=== PATIENT | female | born 1950 | race African-American/Black ===

== ENCOUNTER 2017-05-06 12:58 | Emergency (ER) | payer MEDICARE, MEDICAID ==
[~2017-05-06] VITALS: Ht 172.7 cm; Wt 91.0 kg
[~2017-05-06 12:58] MED LIST: ALBU18HF2; ALBU2.5V13; GUAI-1081; LORA10TA7; LOSA25TA12; MONT10TA24
[2017-05-06] MEDS ORDERED: KETOROLAC 30MG/ML VIAL IV STA (14:38)
[2017-05-06] MEDS ORDERED: MAGNESIUM 2 G PREMIX 50 ML IV ONE (14:45)
[2017-05-06] MEDS ORDERED: METOCLOPRAMIDE HCL 10MG/2ML VIAL IV ONE (14:45)
[2017-05-06 15:10] LABS: BASOPHILS % 0.8 % (0.0-2.0); EOSINOPHILS % 1.5 % (0.0-5.0); HEMATOCRIT. 37.6 % (36.0-48.0); HEMOGLOBIN. 12.5 g/dL (12.0-16.0); LYMPHOCYTES % 31.3 % (20.0-50.0); MEAN CORPUSCULAR HEMOGLOBIN 29.4 pg (28.0-32.0); MEAN CORPUSCULAR VOLUME 88.7 fL (81.0-99.0); MEAN PLATELET VOLUME 11.5 fl (7.4-10.4); MONOCYTES % 6.2 % (2.0-8.0); NEUTROPHILS % 60.2 % (40.0-76.0); PLATELET 166 x1000/uL (130-400); RED BLOOD CELL COUNT 4.24 mill/uL (4.2-5.4); RED CELL DISTRIBUTION WIDTH 12.8 % (11.6-14.6)
[2017-05-06 15:15] LABS: CHLORIDE 107 mEq/L (98-107)
[2017-05-06 15:19] LABS: CARBON DIOXIDE 28 mEq/L (21-32)
[2017-05-06 16:43] VITALS: BP 130/76
== END 2017-05-06 17:11 | disposition home or self-care (01) ==
LOC: ER 15:50
DX: R51 Headache (principal); R42 Dizziness and giddiness; I10 Essential (primary) hypertension; J45.909 Unspecified asthma, uncomplicated; Z79.899 Other long term (current) drug therapy; Z87.891 Personal history of nicotine dependence
CPT/HCPCS: 36415; 80053; 85025; 96361; 96374; 96375; 99284; J1885; J2765; J3475

== ENCOUNTER 2017-05-30 22:18 | Emergency (ER) | payer MEDICARE, MEDICAID ==
[~2017-05-30] VITALS: Ht 175.3 cm; Wt 98.0 kg
[2017-05-30 22:56] VITALS: BP 129/71
== END 2017-05-31 07:38 | disposition left against medical advice (07) ==
LOC: ER 22:18
DX: K08.89 Other specified disorders of teeth and supporting structures (principal); I10 Essential (primary) hypertension; Z90.710 Acquired absence of both cervix and uterus; Z53.21 Procedure and treatment not carried out due to patient leaving prior to being seen by health care provider

== ENCOUNTER 2017-05-31 10:30 | Emergency (ER) | payer MEDICARE, MEDICAID ==
[~2017-05-31] VITALS: Ht 175.3 cm; Wt 99.0 kg
[2017-05-31] MEDS ORDERED: IBUPROFEN 400MG TABLET PO ONE (15:00)
[2017-05-31 16:15] VITALS: BP 143/82
== END 2017-05-31 16:19 | disposition home or self-care (01) ==
LOC: ER 11:32
DX: K12.0 Recurrent oral aphthae (principal); I10 Essential (primary) hypertension; Z87.891 Personal history of nicotine dependence
CPT/HCPCS: 99283

== ENCOUNTER 2017-11-19 15:51 | Emergency (ER) | payer MEDICARE, MEDICAID ==
[~2017-11-19] VITALS: Ht 175.3 cm; Wt 95.0 kg
[2017-11-19 16:27] VITALS: BP 138/78
== END 2017-11-19 20:30 | disposition left against medical advice (07) ==
LOC: ER 16:58
DX: R42 Dizziness and giddiness (principal); Z53.21 Procedure and treatment not carried out due to patient leaving prior to being seen by health care provider
CPT/HCPCS: 93005

== ENCOUNTER 2019-06-15 12:50 | Emergency (ER) | payer MEDICARE, MEDICAID ==
[~2019-06-15] VITALS: Ht 175.3 cm; Wt 80.0 kg
[~2019-06-15 12:50] MED LIST changes: -LOSA25TA12; +LOSA25TA26
[2019-06-15] MEDS ORDERED: ACETAMINOPHEN 325MG TABLET PO STA (15:26)
[2019-06-15 17:03] VITALS: BP 142/76
== END 2019-06-15 17:04 | disposition home or self-care (01) ==
LOC: ER 13:27
DX: S80.252A Superficial foreign body, left knee, initial encounter (principal); S80.02XA Contusion of left knee, initial encounter; M25.532 Pain in left wrist; F41.9 Anxiety disorder, unspecified; Z79.899 Other long term (current) drug therapy; W01.0XXA Fall on same level from slipping, tripping and stumbling without subsequent striking against object, initial encounter; Y93.89 Activity, other specified; Y92.89 Other specified places as the place of occurrence of the external cause; Y99.8 Other external cause status
CPT/HCPCS: 73130; 73562; 99283

== ENCOUNTER 2019-09-08 10:06 | Emergency (ER) | payer MEDICARE, MEDICAID ==
[~2019-09-08] VITALS: Ht 175.3 cm; Wt 100.0 kg
[2019-09-08] MEDS: IBUPROFEN 800MG TABLET PO ONE (11:35)
[2019-09-08 11:54] VITALS: BP 178/92
== END 2019-09-08 11:56 | disposition home or self-care (01) ==
LOC: ER 10:06
DX: L72.3 Sebaceous cyst (principal); I10 Essential (primary) hypertension; F41.9 Anxiety disorder, unspecified; Z90.710 Acquired absence of both cervix and uterus
CPT/HCPCS: 10060; 99283

== ENCOUNTER 2019-11-10 18:03 | Emergency (ER) | payer MEDICARE, MEDICAID ==
[~2019-11-10] VITALS: Ht 175.3 cm; Wt 98.0 kg
[~2019-11-10 18:03] MED LIST changes: -MONT10TA24; +MONT10TA26
[2019-11-10] MEDS ORDERED: KETOROLAC 30MG/ML VIAL IM ONE (19:00)
[2019-11-10 19:03] VITALS: BP 160/94
== END 2019-11-10 19:09 | disposition home or self-care (01) ==
LOC: ER 18:03
DX: J06.9 Acute upper respiratory infection, unspecified (principal); I10 Essential (primary) hypertension; F41.9 Anxiety disorder, unspecified; Z90.710 Acquired absence of both cervix and uterus; Z87.891 Personal history of nicotine dependence
CPT/HCPCS: 96372; 99283; J1885

== ENCOUNTER 2024-09-14 11:40 | Emergency (ER) | payer MEDICARE, MEDICAID ==
[~2024-09-14] VITALS: Ht 170.2 cm; Wt 9706.0 kg
[~2024-09-14 11:40] MED LIST changes: +MONT-39; -MONT10TA26
[2024-09-14 11:45] VITALS: O2SAT 97
[2024-09-14 12:02] VITALS: BP 154/79; PULSE 70; RESP 16; TEMP 97.9; O2SAT 98
[2024-09-14] MEDS ORDERED: ERYT60GE9 TP (13:12)
== END 2024-09-14 13:32 | disposition home or self-care (01) ==
LOC: ER 11:40
DX: L73.9 Follicular disorder, unspecified (principal); I10 Essential (primary) hypertension; F41.9 Anxiety disorder, unspecified; Z90.710 Acquired absence of both cervix and uterus; Z79.899 Other long term (current) drug therapy
CPT/HCPCS: 99283

== ENCOUNTER 2024-09-17 10:44 | Emergency (ER) | payer MEDICARE, MEDICAID ==
[~2024-09-17] VITALS: Ht 170.2 cm; Wt 100.0 kg
[~2024-09-17 10:44] MED LIST changes: +ERYT60GE9 TP
[2024-09-17 10:49] VITALS: O2SAT 99
[2024-09-17 10:51] VITALS: BP 171/83; PULSE 68; RESP 16; TEMP 98.3; O2SAT 97
[2024-09-17] MEDS: BACITRACIN ZINC OINT UDPKT TOP ONE (14:19)
[2024-09-17] MEDS: LIDOCAINE HCL/PF 1% 10 MG/ML 5ML VIAL INFIL ONE (14:19)
[2024-09-17] MEDS ORDERED: SULF1TAB47 MT (15:06)
== END 2024-09-17 15:35 | disposition home or self-care (01) ==
LOC: ER 10:44
DX: N61.1 Abscess of the breast and nipple (principal); I10 Essential (primary) hypertension; Z90.710 Acquired absence of both cervix and uterus; Z79.899 Other long term (current) drug therapy
CPT/HCPCS: 99283; 10060; J3490

== ENCOUNTER 2025-05-10 15:33 | Emergency (ER) | payer MEDICARE, MEDICAID ==
[~2025-05-10] VITALS: Ht 175.3 cm; Wt 100.7 kg
[~2025-05-10 15:33] MED LIST changes: +SULF1TAB47 MT
[2025-05-10 15:37] VITALS: O2SAT 98
[2025-05-10 16:18] LABS: BASOPHILS % 0.4 % (0.0-2.0); EOSINOPHILS % 2.6 % (0.0-5.0); HEMATOCRIT. 40.2 % (36.0-48.0); HEMOGLOBIN. 13.2 g/dL (12.0-16.0); LYMPHOCYTES % 23.1 % (20.0-50.0); MEAN PLATELET VOLUME 11.6 fl (7.4-10.4); MONOCYTES % 6.7 % (2.0-8.0); NEUTROPHILS % 67.2 % (40.0-76.0); PLATELET 177 x1000/uL (130-400); RED BLOOD CELL COUNT 4.50 mill/uL (4.2-5.4); RED CELL DISTRIBUTION WIDTH 13.4 % (11.6-14.6)
[2025-05-10 16:34] LABS: CREATININE 0.8 mg/dL (0.6-1.0); TROPONIN I HIGH SENSITIVITY 18 ng/L (3.0-34); UREA NITROGEN BLOOD 12 mg/dL (9-23)
[2025-05-10] MEDS: ACETAMINOPHEN 500MG TABLET PO ONE (16:45)
[2025-05-10 17:15] VITALS: BP 148/82; PULSE 73; RESP 16; TEMP 36.7; O2SAT 99
[2025-05-10 17:19] LABS: CLARITY URINE CLEAR (CLEAR); COLOR URINE YELLOW (YELLOW); GLUCOSE URINE NEGATIVE (NEGATIVE); KETONES URINE NEGATIVE (NEGATIVE); LEUKOCYTE ESTERASE URINE NEGATIVE (NEGATIVE); NITRITE URINE NEGATIVE (NEGATIVE); OCCULT BLOOD URINE NEGATIVE (NEGATIVE); PH URINE 6.5 (4.5-8.0); PROTEIN URINE NEGATIVE (NEGATIVE); SPECIFIC GRAVITY URINE 1.008 (1.005-1.030); UROBILINOGEN URINE 0.2 E.U./dL (0.2-1.0)
[2025-05-10] MEDS: MECLIZINE 25MG TABLET PO ONE (17:39)
== END 2025-05-10 18:56 | disposition home or self-care (01) ==
LOC: ER 15:33
DX: I10 Essential (primary) hypertension (principal); Z79.899 Other long term (current) drug therapy; Z90.710 Acquired absence of both cervix and uterus
CPT/HCPCS: 99284; 70450; 80048; 81003; 85025; 84484; 36415; 93005; J8597

== ENCOUNTER 2025-09-13 13:56 | Emergency (ER) | payer MEDICARE, MEDICAID ==
[~2025-09-13] VITALS: Ht 175.3 cm; Wt 98.0 kg
[2025-09-13 14:05] VITALS: O2SAT 100
[2025-09-13 15:07] LABS: INFLUENZA TYPE A Presumptive Negative (Pres. Neg.)
[2025-09-13 15:08] LABS: INFLUENZA TYPE B Presumptive Negative (Pres. Neg.)
[2025-09-13] MEDS ORDERED: FLUT9.9S16 BOTHNSTRLS (16:13)
[2025-09-13] MEDS ORDERED: AMOX1TAB16 MT (16:13)
[2025-09-13 16:24] VITALS: BP 159/75; PULSE 71; RESP 18; TEMP 36.9; O2SAT 99
== END 2025-09-13 16:25 | disposition home or self-care (01) ==
LOC: ER 14:10
DX: J01.90 Acute sinusitis, unspecified (principal); I10 Essential (primary) hypertension; Z90.710 Acquired absence of both cervix and uterus; Z20.822 Contact with and (suspected) exposure to COVID-19
CPT/HCPCS: 71045; 87426; 87804; 99284